=== PATIENT | female | born 1970 | race Caucasian/White ===

== ENCOUNTER 2020-09-01 15:35 | Outpatient (CLI) | payer OTHER, SELFPAY ==
--- NOTE | ~2020-09-01 | XR_ITS ---
EXAMINATION: XR knee LT 2V DATE: 09/01/2020 16:11 INDICATION: Left knee pain and swelling. TECHNIQUE: 2 views of left knee were obtained. COMPARISON: Left knee radiographs 07/14/2010 FINDINGS: Bone alignment is normal. No fracture. There is mild tricompartmental osteoarthritis. There is chondrocalcinosis of the menisci. There is a small knee joint effusion. IMPRESSION: 1. Mild left knee osteoarthritis. 2. Small left knee joint effusion. Reviewed, dictated and finalized at location A. TATION ASSOCIATE
== END 2020-09-01 15:36 | disposition home or self-care (01) ==
LOC: ANHIMG 15:41
PROVIDERS: PCP Emergency Medicine; Visit Provider Emergency Medicine
DX: M17.12 Unilateral primary osteoarthritis, left knee (principal); M25.462 Effusion, left knee
CPT/HCPCS: 73560

== ENCOUNTER 2020-11-08 16:15 | Outpatient (RCR) | payer OTHER, SELFPAY ==
--- NOTE | 2020-09-07 15:28 | PTOPEVAL ---
PHYSICAL THERAPY EVALUATION AND PLAN OF CARE Thank you for referring Pat Wood to [facility].? The patient is scheduled to be seen for therapy? 2x/week for 3 weeks. Please review, sign, date and return this plan of care KATHERINE. I agree with and certify that the following plan of care is medically necessary. Referring Physician Date Attending Provider: Kenroy Tucker MD Evaluation Outpatient Past Medical History Musculoskeletal History Hx Orthopedic Surgery Yes: left meniscectomy 2002 Endocrine History Hx Diabetes Yes Diagnosis left knee pain Onset 3 weeks Cause insidious Subjective Information new onest left knee pain Query Text:As Reported By Patient/ pointing to medial joint line Family of knee. 2002 meniscectomy of left knee. States the knee pops all the time and walking is very uncomfortable. Getting into the car and bending the knee are very painful and the knee will throb at the end of the day. She finds herself taking 1 step at a time on the stairs. Has been taking anti- inflammatories which is helping and states this is the best week of walking. Picking up Tramadol tomorrow for pain. Diagnostic Tests X-Rays For This Problem Yes: tricompartmental OA; chondrocalcinosis of menisci Self Report Pain Assessment Left Knee(s) Reported Pain Level 7 Pain Description Aching,Throbbing Pain Frequency Acute,Continuous Lowest Pain Intensity 7 Greatest Pain Intensity 10 Pain Score Pain Score 7: Self Report Interventions Used Interventions Used By Clinicians Exercise Pain Relief Interventions Used By Heat,Ice Patient Other Alleviating Interventions compression brace Lower Extremity Range of Motion Knee Range of Motion Left Knee Flexion Range of Motion - Active 113 Knee Extension Range of Motion - Active 0 Query Text: Lower Extremity Muscle Strength Testing Knee Strength Left Reason Not Measured WNL/Right Knee Flexion Strength 4 Good Knee Extension Strength 4- Good - Palpation Assessment Palpation Palpation significant tightness and trigger point noted to left quadrcieps - patient notes
--- NOTE | 2020-09-11 11:51 | PCPTNOTE ---
Patient cancelled apt this date due to illness. Patient will call and reschedule.
--- NOTE | 2020-09-19 10:06 | PCPTNOTE ---
Patient called & cancelled scheduled appointment this date. She rescheduled for 09/20/20 at 7:45.
--- NOTE | 2020-09-20 08:06 | PCPTNOTE ---
Patient called & cancelled scheduled appointment this date due to not feeling well.
--- NOTE | 2020-09-27 13:07 | PCPTNOTE ---
Patient called & cancelled scheduled appointment this date. She rescheduled for 10/04/2020.
--- NOTE | 2020-10-04 15:47 | PTOPEVAL ---
PHYSICAL THERAPY PROGRESS REPORT AND PLAN OF CARE UPDATE Thank you for referring Pat Wood to [facility].? The patient is scheduled to be seen for therapy? 1x/week for 4 weeks. Please review, sign, date and return this plan of care KATHERINE. I agree with and certify that the following plan of care is medically necessary. Referring Physician Date Attending Provider: Kenroy Tucker MD Assessment Status Progress Outpatient Past Medical History Musculoskeletal History Hx Orthopedic Surgery Yes: left meniscectomy 2002 Endocrine History Hx Diabetes Yes Diagnosis left knee pain Onset 7 weeks Cause insidious Subjective Information new onest left knee pain Query Text:As Reported By Patient/ pointing to medial joint line Family of knee. States that she feels therapy is helping. She saw an orthopedic doctor yesterday and he did a cortisone injection which seems to be productive after 24 hours. Self Report Pain Assessment Left Knee(s) Reported Pain Level 3 Pain Description Aching,Throbbing Pain Frequency Acute,Continuous Pain Score Pain Score 3: Self Report Interventions Used Interventions Used By Clinicians Exercise,Ultrasound Pain Relief Interventions Used By Heat,Ice Patient Other Alleviating Interventions . Lower Extremity Range of Motion Knee Range of Motion Left Knee Flexion Range of Motion - Active 113 Knee Extension Range of Motion - Active 0 Query Text: Lower Extremity Muscle Strength Testing Knee Strength Left Reason Not Measured WNL/Right Knee Flexion Strength 5 Normal Knee Extension Strength 5 Normal Muscle Length Testing Muscle Length Testing Two-Joint Hip Flexor Shortened Muscles Short (L) Iliopsoas,Short (L) Rectus Femoris Palpation Assessment Palpation Palpation significaintly improved patellar mobility Balance Assessment 5 Time Sit to Stand Time in Seconds 14 5 Time Sit to Stand Comments without use of UE Query Text:Normative Data: If Greater Than 15 Seconds, 74% Increase Risk for Recurrent Falls Gait Assessment 2 Minute Walk Total Distance Walked (feet) 285 2 Minute Walk Gait Speed Score (feet/ 2.37 second) PT Clinical Summary Pat is a 49 yo female participating in outpatient physical therapy for acute onset left knee pain without
--- NOTE | 2020-10-11 16:11 | PCPTNOTE ---
Patient called & cancelled scheduled appointment this date due to having to work later.
--- NOTE | 2020-10-25 14:12 | PCPTNOTE ---
Patient called & cancelled scheduled appointment this date due to weather.
--- NOTE | 2020-11-01 13:16 | PCPTNOTE ---
Patient called & cancelled scheduled appointment this date due to work.
--- NOTE | 2020-11-08 16:27 | PTOPEVAL ---
Addendum entered by Keri Jean, PT, DPT 11/08/20 16:30: correction: no frequency or duration required as patient is discharged. Original Note: PHYSICAL THERAPY DISCHARGE NOTE Thank you for referring aPt Wood to [facility].? Pat was seen in PT for acute left knee pain. Her gait pattern and strength have significantly improved and she is independent with HEP. Symptoms continue to persist possibly requiring further imaging assessment for differential diagnosis. Please review, sign, date and return this plan of care KATHERINE. I agree with and certify that the following plan of care is medically necessary. Referring Physician Date Attending Provider: Kenroy Tucker MD Discharge Outpatient Past Medical History Musculoskeletal History Hx Orthopedic Surgery Yes: left meniscectomy 2003 Endocrine History Hx Diabetes Yes Diagnosis left knee pain Onset 11 weeks Cause insidious Subjective Information new onest left knee pain Query Text:As Reported By Patient/ pointing to medial joint line Family of knee. Had a cortisone injection a month ago that was initially helping with a lot of the pain , but she states that some of the pain has returned, especially when walking and taking sharp turns. Self Report Pain Assessment Left Knee(s) Reported Pain Level 4 Pain Description Aching,Throbbing Pain Frequency Acute,Continuous Lowest Pain Intensity 2 Greatest Pain Intensity 6 Other Pain Aggravating Factors walking and taking sharp turns Pain Score Pain Score 4: Self Report Interventions Used Interventions Used By Clinicians Exercise Pain Relief Interventions Used By Lisa Dodd Patient Lower Extremity Muscle Strength Testing Knee Strength Left Reason Not Measured WNL/Right Knee Flexion Strength 5 Normal Knee Extension Strength 5 Normal Balance Assessment 5 Time Sit to Stand Time in Seconds 14 5 Time Sit to Stand Comments without use of UE Query Text:Normative Data: If Greater Than 15 Seconds, 74% Increase Risk for Recurrent Falls Gait Assessment Gait Pattern Assessment Gait Pattern No Deviations/Normal 2 Minute Walk Total Distance Walked (feet) 429 2 Minute Walk Gait Speed Score (feet/ 3.57 second) PT Clinical Summary Pat is a 49 yo female participating in outpatient physical therapy for acute onset left knee pain without
== END 2020-11-09 07:35 | disposition home or self-care (01) ==
LOC: ANHPT 16:15
PROVIDERS: PCP Emergency Medicine; Visit Provider Emergency Medicine
DX: M25.562 Pain in left knee (principal)
CPT/HCPCS: 97035; 97110; 97140; 97162

== ENCOUNTER 2021-09-10 16:33 | Outpatient (CLI) | payer OTHER, SELFPAY ==
--- NOTE | ~2021-09-10 | XR_ITS ---
EXAMINATION: XR foot RT 2V DATE: 09/10/2021 16:52 INDICATION: Right foot pain. TECHNIQUE: 2 views of right foot were obtained. COMPARISON: None. FINDINGS: Bone alignment is normal. No acute fracture. There is an old healed fracture of proximal di aphysis of fifth metatarsal. There is heterotopic ossification adjacent to base of fifth metatarsal. There is mild osteoarthritis of some of the midfoot joints and interphalangeal joints. There are enth esophytes at the posterior and plantar aspects of calcaneal tuberosity. IMPRESSION: 1. Mild polyarticular osteoarthritis. Reviewed, dictated and finalized at location A. SHAPER
== END 2021-09-10 16:34 | disposition home or self-care (01) ==
LOC: ANHIMG 16:37
PROVIDERS: PCP Emergency Medicine; Visit Provider Emergency Medicine
DX: M19.071 Primary osteoarthritis, right ankle and foot (principal)
CPT/HCPCS: 73620

== ENCOUNTER 2021-10-16 15:54 | Outpatient (CLI) | payer OTHER, SELFPAY ==
--- NOTE | ~2021-10-16 | MM_ITS ---
EXAMINATION: MM screening derik BI w richar HISTORY: Screening TECHNIQUE: Craniocaudal and mediolateral oblique 3-D tomosynthesis images were obtained and synthetic 2-D images were generated. CAD analysis was submitted and interpreted. COMPARISON: Comparison to multiple prior studies sequentially, with oldest reviewed study dated 06/09. BREAST PARENCHYMAL COMPOSITION: There are scattered areas of fibroglandular density. FINDINGS: There is no evidence of suspicious mass, calcification, or architectural distortion to sugg est malignancy in either breast. There has been no suspicious interval change. IMPRESSION: 1. No mammographic evidence of malignancy. 2. Recommend routine screening mammography in one year. BI-RADS Category 1: Negative Reviewed, dictated and finalized at location A. T RELATION OFFICER
== END 2021-10-16 15:55 | disposition home or self-care (01) ==
LOC: ANHIMG 15:55
PROVIDERS: PCP Emergency Medicine; Visit Provider Emergency Medicine
DX: Z12.31 Encounter for screening mammogram for malignant neoplasm of breast (principal)
CPT/HCPCS: 77063; 77067

== ENCOUNTER 2022-06-28 12:08 | Observation (INO) | payer OTHER, SELFPAY ==
--- NOTE | ~2022-06-28 | CT_ITS ---
EXAMINATION: CT abdomen pelvis w con INDICATION: Lower abdominal and pelvic pain, open wound TECHNIQUE: Computed tomographic images of the abdomen and pelvis were obtained after the administrati on of 100 cc of Omnipaque 350 intravenous contrast. The dose-length product (DLP) was 1664.43 mGy-cm. Automated exposure control and iterative reconstruction technique were employed. COMPARISON: 09/20/2019 FINDINGS: Minimal dependent atelectasis is present in the lung bases. The heart size is normal. The l iver, spleen, pancreas, gallbladder, and adrenal glands are normal. The kidneys are unremarkable. No pathologically enlarged abdominal or pelvic lymph nodes are identified. There is no free intraperiton eal gas or evidence of bowel obstruction. Colonic diverticulosis is present without evidence of diver ticulitis. The appendix is normal. There is severe lumbar spondylosis at L5-S1. There is an approximately 6.6 x 4.2 cm soft tissue abscess in the anterior/mid nine lower pelvis with a tract to the skin surface. Fat stranding surrounding the abscess. IMPRESSION: 1. Approximately 6.6 x 4.2 cm soft tissue abscess in the anterior/midline lower pelvis with tract to the skin surface. Reviewed, dictated and finalized at location A.
[2022-06-28 12:12] VITALS: BP 151/73; PULSE 91; RESP 18; TEMP 36.6; O2SAT 99
--- NOTE | 2022-06-28 13:12 | ED.SKABFB ---
HPI - Skin/Abscess/Foreign Bdy General Chief complaint: Skin/Abscess/Foreign Body Stated complaint: abcess to hernia scar Time Seen by Provider: 06/28/22 12:47 Source: patient Mode of arrival: ambulatory Limitations: no limitations History of Present Illness HPI narrative: This is a 51-year-old female that presents to the emergency department for a wound on her abdomen. Ongoing over the last week. Reports she has started to notice some abnormal drainage from the area. Denies fevers or vomiting. Related Data Allergies Allergy/AdvReac Type Severity Reaction Status Date / Time No Known Allergies Allergy Verified 03/05/17 18:39 Review of Systems Review of Systems: CONSTITUTIONAL: Denies fever GASTROINTESTINAL: Denies abdominal pain, nausea, vomiting GENITOURINARY: Denies dysuria All systems reviewed & are unremarkable except as noted in HPI and below PMFSH Past Medical History Medical History (Updated 06/28/22 @ 14:41 by Bobbi Rohca PA-C) History of diabetes mellitus History of hypertension Family History Family History (Updated 02/05/17 @ 14:07 by DOCTOR UNKNOWN) Father Family history of diabetes mellitus in first degree relative Family history of congestive heart failure Mother Family history of heart disease in male family member before age 55 Acute myocardial infarction Other Diabetes mellitus Hypertension Social History Social History Smoking status: Current every day smoker Alcohol intake: current Exam Narrative: GENERAL: Well-appearing, well-nourished, and in no acute distress. HEAD: Normocephalic, atraumatic. EYES: EOMI. CHEST: Clear to auscultation. No respiratory distress. No wheezes rales or rhonchi HEART: Regular rate and rhythm. No murmur heard. Normal peripheral pulses. ABDOMEN: Soft, nontender, nondistended, normal active bowel sounds. 2cm open wound to the mid abdomen that is 1cm deep. No surrounding erythema or warmth of the area. There is clear/yellow drainage from the wound EXTREMITIES: Normal range of motion. No edema. SKIN: Warm, dry, no rash. NEURO: No focal deficits. Alert and oriented x3. PSYCH: Normal mood and affect Course Consultations Consultation #1: Spoke with surgery about patient and work-up. Patient will be started on Zosyn and they will consult for further management of abscess. Date: 06/28/22 Consultation #2: Spoke with hospitalist about patient and work-up who accepts admission Date: 06/28/22 Vital Signs Vital signs: Vital Signs Temperature 97.9 F 06/28/22 12:12 Pulse Rate 91 06/28/22 12:12 Respiratory Rate 18 06/28/22 12:12 Blood Pressure 151/73 H 06/28/22 12:12 Pulse Oximetry 99 06/28/22 12:12 Temperature 97.9 F 06/28/22 12:12 Pulse Rate 91 06/28/22 12:12 Respiratory Rate 18 06/28/22 12:12 Blood Pressure 151/73 H 06/28/22 12:12 Pulse Oximetry 99 06/28/22 12:12 MDM - Skin/Abscess/Foreign Bdy MDM Narrative Medical decision making narrative: Patient presents to the emergency department for a wound noted to the mid abdomen around where her previous hernia repair was. She is afebrile and nontoxic-appearing. Her vitals are stable. CBC with leukocytosis to 14.1. CT scan of the abdomen and pelvis shows a 6.6 x 4.2 cm soft tissue abscess in the anterior/midline lower pelvis with tract to the skin surface. I was able to obtain a culture from the area. Spoke with surgery about patient and work-up. Patient will be started on Zosyn and they will consult for further management of abscess. Spoke with hospitalist about patient and work-up who accepts admission Lab Data Attestation: I reviewed the patient's lab results. Result diagrams: 06/28/22 13:06 06/28/22 13:06 Labs: Lab Results 06/28/22 06/28/22 06/28/22 Range/Units 13:06 13:06 13:06 WBC 14.1 H (4.5-10.0) K/mm3 RBC 4.96 (4.2-5.4) M/mm3 Hgb 14.8 (12.0-15.0) g/dL Hct 43.9 (37.0-47.0) % MCV
[2022-06-28 13:18] LABS: Appearance Urine Slightly Cloudy (Clear); Bilirubin Urine Negative (Negative); Blood Urine Negative (Negative); Color Urine Yellow (Yellow); Glucose Urine UA Negative (Negative); Ketones Urine Negative (Negative); Leukocyte Esterase Ur Negative LEU/UL (Negative); Nitrate Urine Negative (Negative); Protein Urine Negative (Negative); Specific Grav Ur >= 1.030 (1.001-1.035); Urobilinogen Urine 0.2 mg/dL (<2.0); pH Urine 5.5 (5.0-9.0)
[2022-06-28 13:19] LABS: Basophils Absolute Auto 0.1 K/mm3 (0.0-0.1); Basophils Percent Auto 0.9 % (0.2-1.2); Eosinophils Absolute Auto 0.5 K/mm3 (0-0.3); Eosinophils Percent Auto 3.6 % (0-4.4); Hematocrit 43.9 % (37.0-47.0); Hemoglobin 14.8 g/dL (12.0-15.0); Immature Granulocyte Absolute 0.09 K/mm3 (0.00-0.031); Immature Granulocyte Percent A 0.6 % (0-0.5); Lymphocytes Absolute Auto 2.53 K/mm3 (0.9-3.2); Mean Corpuscular HGB Conc 33.7 g/dl (32-36); Mean Corpuscular Hemoglobin 29.8 pg (26-34); Mean Corpuscular Volume 88.5 fl (80-100); Mean Platelet Volume 9.3 fl (7.4-10.4); Monocytes Absolute Auto 0.8 K/mm3 (0.1-0.6); Monocytes Percent Auto 5.3 % (2.6-8.5); Neutrophils Absolute Auto 10.1 K/mm3 (1.3-6.7); Neutrophils Percent Auto 71.6 % (45.5-73.1); Platelet Count Result 449 k/mm3 (150-375); Red Blood Count 4.96 M/mm3 (4.2-5.4); Red Cell Distribution Width 14.5 % (11.5-14.5); White Blood Count 14.1 K/mm3 (4.5-10.0)
[2022-06-28 13:21] LABS: Bacteria Urine Trace /hpf; Mucus Urine Few /lpf; RBC Urine 0-2 /hpf (0-2); Squamous Epithelial Cell Urine Many /hpf (Few)
[2022-06-28 13:26] LABS: Add Urine Microscopic? YES
[2022-06-28 13:30] LABS: Alanine Aminotransferase 28 U/L (6-35); Albumin Level 4.8 g/dL (3.5-5.1); Alkaline Phosphatase 70 U/L (38-126); Anion Gap 15 mmol/L (8-16); Aspartate Amino Transferase 27 U/L (14-36); Bilirubin,Total 0.3 mg/dL (0.2-1.3); Blood Urea Nitrogen 13 mg/dL (7-17); Calcium 9.2 mg/dL (8.4-10.2); Carbon Dioxide 23 mmol/L (22-30); Chloride 101 mmol/L (98-107); Estimated CRCL calculation 104 ml/min; Estimated Glomerular Filt Rate > 60; Glucose 109 mg/dL (65-110); Lipase 118 U/L (23-300); Sodium 139 mmol/L (137-145)
[2022-06-28 15:18] VITALS: BP 145/78; PULSE 81; RESP 18; TEMP 37.1; O2SAT 97
--- NOTE | 2022-06-28 15:55 | ADMGEN ---
This patient, Pat Wood, was admitted to 2 Medical Room 251-. Patient/family oriented to hospital policies and general routines including ID bracelet, bed and alarms, visiting hours, pain management, procedures, bathroom and other care routines, personal items, smoking policy, room service/diet, and visiting hours. Information on how to activate the Rapid Response Team has been discussed. Patient/Family are encouraged to report perceived risks to care and to ask questions if they do not understand what they are told or what they should do.
[2022-06-28 16:20] VITALS: BP 146/73; PULSE 76; RESP 18; TEMP 37.2; O2SAT 95
[2022-06-28 16:25] VITALS: BMI 46.7
--- NOTE | 2022-06-28 17:49 | PM.IMHP ---
H&P: HPI History of Present Illness Date/Time: 06/28/22 17:49 Chief Complaint: Skin abscess Narrative: This is a 51-year-old female patient who has had a history of a hernia repair and has had at least 2 or 3 abscesses drained from her abdomen. Patient had an abscess drained back in May at [facility]. The patient had approximately 10 days of antibiotics and felt that she was doing well. Over the last several days she has noticed a greenish foul-smelling drainage from her umbilical area where she had a history of umbilical hernia repair. This has been occurring for the last week. The patient stated that she had a from that was a nurse to encouraged her to come to the hospital. She denies any fever or chills or any nausea vomiting. A culture was obtained from the wound in the emergency room. Surgery has been consulted. White count was found to be 14.1. Urine had many squamous epithelial cells which leads me to believe that this is a contaminant. Abdominal pelvis CT was read as approximately 6.6 x 4.2 cm soft tissue abscess in the anterior/midline lower pelvis with tract to the skin surface. The patient was started on Zosyn. The patient is being admitted to observation status on the date of service of 06/28/2022. Review of Systems Review of Systems: See HPI All systems reviewed & are unremarkable except as noted in HPI and below Constitutional: Constitutional: Reports as per HPI and Reports no additional constitutional complaints Eyes: Eyes: Reports as per HPI and Reports no additional eye complaints ENT: Reports system reviewed and no additional complaints, except as documented and Reports Normal hearing present Cardiovascular: Cardiovascular: Reports no additional cardiovascular complaints Respiratory: Respiratory: Reports no additional respiratory complaints and Reports no additional respiratory complaints Gastrointestinal: Gastrointestinal: Reports as per HPI and Reports no additional gastrointestinal complaints Musculoskeletal: Musculoskeletal: Reports no additional musculoskeletal complaints Integumentary/Breasts: Skin/Breast: Reports system reviewed and no additional complaints, except as docu and Reports as per HPI Neurologic: Reports system reviewed and no additional complaints, except as documented, Reports as per HPI and Reports Normal hearing present Psychiatric: Psychiatric: Reports no additional psychiatric complaints and Reports as per HPI Endocrine: Endocrine: Reports no additional endocrine complaints Hematologic/Lymphatic: Hematologic/Lymphatic: Reports no additional hematologic/lymphatic complaints Allergic/Immunologic: Allergic/Immunologic: Reports no additional allergic/immunologic complaints [facility] Past Medical History Medical History Depression with anxiety DM2 (diabetes mellitus, type 2) Glaucoma History of diabetes mellitus History of hypertension Hyperlipidemia Hypertension Tobacco abuse Surgical History Surgical History (Updated 06/28/22 @ 18:01 by Renee Love NP) H/O hernia repair X3 H/O left knee surgery H/O removal of cyst History of section, low transverse X2 Family History Family History Father Family history of diabetes mellitus in first degree relative Family history of congestive heart failure Mother Family history of heart disease in male family member before age 55 Acute myocardial infarction Other Diabetes mellitus Hypertension Social History Social History (Updated 06/28/22 @ 18:00 by Renee Love NP) Social History: The patient stated that she is down to about 3 cigarettes a day. She is . She works as a assistant corporate secretary. She has 2 children. She occasionally drinks alcohol. No marijuana or illicit drugs. She does not have a durable power criminal defense attorney for healthcare. Code status full code Years smok
[2022-06-28 20:12] VITALS: BP 154/64; PULSE 75; RESP 20; TEMP 36.6; O2SAT 98
[2022-06-28 20:47] LABS: Glucose Point of Care 211 mg/dl (65-105)
[2022-06-28] MEDS: LATANOPROST 0.005% OP SOLN 2.5 ML BTL 1 DROP EACH EYE (20:52)
[2022-06-28] MEDS: VENLAFAXINE HCL 37.5 MG TABLET PO (23:46)
[2022-06-29 05:19] LABS: Basophils Absolute Auto 0.1 K/mm3 (0.0-0.1); Basophils Percent Auto 0.9 % (0.2-1.2); Eosinophils Absolute Auto 0.4 K/mm3 (0-0.3); Eosinophils Percent Auto 4.5 % (0-4.4); Hematocrit 39.4 % (37.0-47.0); Hemoglobin 12.8 g/dL (12.0-15.0); Immature Granulocyte Absolute 0.06 K/mm3 (0.00-0.031); Immature Granulocyte Percent A 0.7 % (0-0.5); Lymphocytes Absolute Auto 1.69 K/mm3 (0.9-3.2); Lymphocytes Percent Auto 19.2 % (18.3-44.2); Mean Corpuscular HGB Conc 32.5 g/dl (32-36); Mean Corpuscular Hemoglobin 28.4 pg (26-34); Mean Corpuscular Volume 87.4 fl (80-100); Mean Platelet Volume 9.4 fl (7.4-10.4); Monocytes Absolute Auto 0.6 K/mm3 (0.1-0.6); Monocytes Percent Auto 6.5 % (2.6-8.5); Neutrophils Percent Auto 68.2 % (45.5-73.1); Platelet Count Result 358 k/mm3 (150-375); Red Blood Count 4.51 M/mm3 (4.2-5.4); Red Cell Distribution Width 14.2 % (11.5-14.5); White Blood Count 8.8 K/mm3 (4.5-10.0)
[2022-06-29 05:24] VITALS: BP 134/73; PULSE 65; RESP 16; TEMP 36.5; O2SAT 98
[2022-06-29 05:46] LABS: Alanine Aminotransferase 24 U/L (6-35); Albumin Level 3.9 g/dL (3.5-5.1); Alkaline Phosphatase 64 U/L (38-126); Anion Gap 8 mmol/L (8-16); Aspartate Amino Transferase 22 U/L (14-36); Bilirubin,Total 0.4 mg/dL (0.2-1.3); Blood Urea Nitrogen 14 mg/dL (7-17); Calcium 8.4 mg/dL (8.4-10.2); Carbon Dioxide 27 mmol/L (22-30); Chloride 102 mmol/L (98-107); Estimated CRCL calculation 95 ml/min; Estimated Glomerular Filt Rate 59; Glucose 169 mg/dL (65-110); Lactate Dehydrogenase 116 U/L (120-246); Potassium 4.2 mmol/L (3.4-5.0); Sodium 137 mmol/L (137-145)
[2022-06-29 07:14] LABS: Hemoglobin A1C 7.6 % (<5.7)
--- NOTE | 2022-06-29 08:08 | PM.CNGS ---
Assessment and Plan Assessment and plan (1) Abdominal wall abscess: Code(s): L02.211 - Cutaneous abscess of abdominal wall Status: Acute Assessment and Plan: reviewed c radiologist and abscess does not seem to involve underlying mesh, will open it up and drain at bedside, cont abx and local wound care, f/u 10 days after discharge (2) DM2 (diabetes mellitus, type 2): Code(s): E11.9 - Type 2 diabetes mellitus without complications Status: Acute Assessment and Plan: will need good bs control to allow healing of wound History of Present Illness Consult details Consult date: 06/29/22 Reason for consult: wound care Requesting physician: Garcia Moreland MD Narrative: The patient is a 51-year-old female with multiple medical issues, including multiple ventral hernia repairs, presenting with a draining wound in her lower midline. The patient reports her last hernia repair was approximally 2016. The patient reports she has had a couple of abscesses in her abdominal wall that have required drainage in the past. The patient reports over the last week that she had an opening in her lower midline that has been draining purulent fluid. The patient reports there is some mild associated pain. The patient denies any cellulitis, fevers or chills. Review of Systems Constitutional: Constitutional: Reports as per HPI, Denies anorexia, Denies chills, Denies fatigue, Denies fever(s), Denies lethargy, Denies poor appetite, Denies weakness, Denies weight gain and Denies weight loss Eyes: Eyes: Reports no additional eye complaints ENT: Reports system reviewed and no additional complaints, except as documented Cardiovascular: Cardiovascular: Reports no additional cardiovascular complaints Respiratory: Respiratory: Reports no additional respiratory complaints Gastrointestinal: Gastrointestinal: Reports as per HPI, Denies abdominal pain, Denies belching, Denies bloating, Denies change in bowel habits, Denies constipation, Denies GI cramping, Denies heartburn, Denies diarrhea, Denies loose stools, Denies nausea and Denies vomiting Genitourinary: Genitourinary: Reports no additional female genitourinary complaints Musculoskeletal: Musculoskeletal: Reports no additional musculoskeletal complaints Integumentary/Breasts: Skin/Breast: Reports as per HPI Neurologic: Reports system reviewed and no additional complaints, except as documented Psychiatric: Psychiatric: Reports no additional psychiatric complaints Endocrine: Endocrine: Reports no additional endocrine complaints Hematologic/Lymphatic: Hematologic/Lymphatic: Reports no additional hematologic/lymphatic complaints Allergic/Immunologic: Allergic/Immunologic: Reports no additional allergic/immunologic complaints [facility] Past Medical History Medical History Depression with anxiety DM2 (diabetes mellitus, type 2) Glaucoma History of diabetes mellitus History of hypertension Hyperlipidemia Hypertension Tobacco abuse Surgical History Surgical History H/O hernia repair X3 H/O left knee surgery H/O removal of cyst History of section, low transverse X2 Family History Family History Father Family history of diabetes mellitus in first degree relative Family history of congestive heart failure Mother Family history of heart disease in male family member before age 55 Acute myocardial infarction Other Diabetes mellitus Hypertension Social History Social History Social History: The patient stated that she is down to about 3 cigarettes a day. She is . She works as a police department secretary. She has 2 children. She occasionally drinks alcohol. No marijuana or illicit drugs. She does not have a durable power paperhanger pipe for healthcare.
--- NOTE | 2022-06-29 08:15 | W.PM.PROC2 ---
Procedure Note - Detailed Date of Procedure 06/29/22 Pre-op Diagnosis Lower midline abdominal wall abscess measuring approximately 7 x 5 x 8 cm Post-op Diagnosis Same Procedure Performed complex incision and drainage abdominal wall abscess Surgeon Suma Siu MD Anesthesia None Indications 51-year-old female with lower midline abdominal wall abscess, multiple previous surgical history includeing ventral hernia repair Findings 7 x 5 x 8 cm abscess cavity in subcutaneous tissue of lower midline Description of Procedure The patient was placed in the supine position. The patient of note has severe neuropathy and does not feel much in her lower abdomen. The area was then prepped and draped in the normal sterile fashion. Began by bluntly opening up the existing opening using a hemostat. The area was opened approximately 2 x 2 cm. I then bluntly dissected down to the abscess cavity which was noted to be approximately 8 cm into the subcutaneous tissue. Once into the cavity, a large amount blood purulent drainage was noted. I then used the hemostat to bluntly dissect around this cavity which measured approximately 7 x 5 cm. Once the area was completely opened and drained, packed this area with quarter-inch iodoform to keep the tract open and draining. Then placed a sterile dressing on the abdominal wall. The patient tolerated the procedure well. Estimated Blood Loss 0 Drains No Packing Yes Pathology None sent Complications No immediate complications Condition Stable Disposition Floor [facility] Billing Surgery - Charge Forward: Surgery Billing
[2022-06-29 08:30] LABS: Glucose Point of Care 165 mg/dl (65-105)
[2022-06-29 09:13] VITALS: BP 136/72
[2022-06-29] MEDS: FENOFIBRATE 160 MG TABLET PO (09:14)
[2022-06-29] MEDS: ROSUVASTATIN 10 MG TABLET PO (09:14)
[2022-06-29] MEDS: lisinopriL 20 MG TABLET PO (09:14)
[2022-06-29] MEDS: VENLAFAXINE HCL 37.5 MG TABLET PO (09:14)
[2022-06-29] MEDS: BRIMONIDINE TARTRATE 0.2% OP SOLN 5 ML BTL 1 DROP EACH EYE (09:14)
[2022-06-29] MEDS: GLIMEPIRIDE 1 MG TABLET PO (09:14)
--- NOTE | 2022-06-29 10:09 | PC.NURSE ---
Spoke with Tori Fulton per Dr. Siu to let her know that from his stand point patient can discharge. He has already explained wound care to the patient, the patient already has a follow up appointment with Dr. Anderson, and that patient will need antibiotics at discharge. Tori stated she will come see patient.
--- NOTE | 2022-06-29 11:09 | PM.DS ---
DS: Admitting Diagnosis Discharge Date 06/29/22 13:13 Admitting Diagnosis skin abscess Type 2 diabetes uncontrolled DS: Discharge Diagnosis Discharge Diagnosis (1) Abdominal wall abscess: Code(s): L02.211 - Cutaneous abscess of abdominal wall Status: Acute Assessment and Plan: -patient has mild leukocytosis with a white count of 14.1. -patient was started on Zosyn. -surgery has been consulted. -continue to monitor CBC. -wound and blood cultures are pending. -patient is afebrile. (2) DM2 (diabetes mellitus, type 2): Code(s): E11.9 - Type 2 diabetes mellitus without complications Status: Acute Assessment and Plan: -Accu-Cheks AC and HS. -check A1c. -Hold metformin -continue with glimepiride. (3) Hyperlipidemia: Code(s): E78.5 - Hyperlipidemia, unspecified Status: Acute Assessment and Plan: -continue with fenofibrate. -continue Crestor (4) Glaucoma: Code(s): H40.9 - Unspecified glaucoma Status: Acute Assessment and Plan: -continue with latanoprost (5) Hypertension: Code(s): I10 - Essential (primary) hypertension Status: Acute Assessment and Plan: -continue lisinopril and monitor BMP (6) Depression with anxiety: Code(s): F41.8 - Other specified anxiety disorders Status: Acute Assessment and Plan: -Continue with venlafaxine -continue with diazepam (7) Tobacco abuse: Code(s): Z72.0 - Tobacco use Status: Acute Assessment and Plan: -patient has been encouraged to stop smoking. The patient states that she smokes 3 cigarettes a day. One on the way to work when on the way home from work and 1 at bedtime. DS: Summary Hospital Course Reason for hospitalization: skin abscess Hospital Course: 51-year-old female patient who has had a history of a hernia repair and has had at least 2 or 3 abscesses drained from her abdomen.? Patient had an abscess drained back in May at [facility].? The patient had approximately 10 days of antibiotics and felt that she was doing well.? Over the last several days she has noticed a greenish foul-smelling drainage from her umbilical area where she had a history of umbilical hernia repair.? This has been occurring for the last week.? The patient stated that she had a from that was a nurse to encouraged her to come to the hospital.? She denies any fever or chills or any nausea vomiting.? A culture was obtained from the wound in the emergency room.? Surgery has been consulted.? White count was found to be 14.1.? Urine had many squamous epithelial cells which leads me to believe that this is a contaminant.? Abdominal pelvis CT was read as approximately 6.6 x 4.2 cm soft tissue abscess in the anterior/midline lower pelvis with tract to the skin surface.? The patient was started on Zosyn.? The patient is being admitted to observation status on the date of service of 06/28/2022. Status at Discharge Cognitive/behavioral status at discharge: Alert and oriented x4, pleasant, no behavioral concerns Functional status at discharge: independent ambulation Overall status at discharge: patient is back to baseline Time Spent with Patient Time attestation: Total time spent providing and/or coordinating discharge services: Time spent: Greater than 30 minutes (>50% time education) Exam Narrative: General:??no acute distress. Non-toxic appearing.?Lying in bed. T 97.7F, HR 65, RR 16, BP 136/7, SpO2 98% RA HEENT:??? Normocephalic. pupils equal and round. Sclera anicteric. Mucous membranes pink and moist. Neck:???no JVD Respiratory:? Lungs sounds clear to auscultation bilaterally. respirations even and labored. Cardiovascular:??Regular rate and rhythm with S1-S2.?? no murmurs, gallops, or rubs Gastrointestinal:??Abdomen is soft, obese, nontender, and nondistended with positive bowel sounds. no guarding or suprapubic tenderness, lower abdomen dressing with
[2022-06-29 12:13] LABS: Glucose Point of Care 143 mg/dl (65-105)
--- NOTE | 2022-06-29 13:04 | PC.NURSE ---
Faxed release of records to [facility] per Tori Fulton.
--- NOTE | 2022-06-29 13:07 | PC.NURSE ---
Spoke with Tori Fulton to clarify that patient can leave before MRSA swab results come back as well as before culture results come back from [facility]. Tori stated that she will follow up with patient outpatient and patient okay to discharge
== END 2022-06-29 14:34 | disposition home or self-care (01) ==
LOC: ANHED 14:41 → ANH2MED 16:01
PROVIDERS: Nurse Practitioner; Physician Assistant; Admitting Provider Family Medicine; Emergency Provider Emergency Medicine; PCP Emergency Medicine; Visit Provider Nurse Practitioner Family
DX: L02.211 Cutaneous abscess of abdominal wall (principal); E11.9 Type 2 diabetes mellitus without complications; I10 Essential (primary) hypertension; E78.5 Hyperlipidemia, unspecified; F17.210 Nicotine dependence, cigarettes, uncomplicated; F41.8 Other specified anxiety disorders
CPT/HCPCS: 10061; 36415; 74177; 80053; 81001; 81025; 82728; 82948; 83036; 83615; 83690; 83735; 85025; 86140; 87040; 87070; 87081; 87147; 87181; 87186; 87205; 96365; 99285; A9270; G0378; G0379; J2543; Q9967

== ENCOUNTER 2022-08-29 14:59 | Outpatient (CLI) | payer OTHER, SELFPAY ==
--- NOTE | ~2022-08-29 | CT_ITS ---
EXAMINATION: CT abdomen pelvis w con DATE: 08/29/2022 15:33 INDICATION: Pelvic abscess follow-up TECHNIQUE: Computed tomography (CT) of the abdomen and pelvis was performed with 100 CC Omnipaque 350 intravenous contrast. Automated exposure control and iterative reconstruction technique were employe d. Exam dose: 1691.62 mGy-cm total exam DLP. COMPARISON: 06/28/2022 CT abdomen pelvis FINDINGS: No infiltrate or consolidation at the lung bases. Normal heart size. No pericardial or pleu ral effusion. There is diffuse hepatic steatosis. No hepatic, splenic, pancreatic, and adrenal space-occupying mass lesion. No bile duct or pancreatic duct dilatation. Approximately 9 mm probable upper pole left renal cyst. No urinary tract obstruction or hydroureteron ephrosis. There is atherosclerotic calcification but normal caliber of the abdominal aorta. 2.9 cm right ovarian cyst. Asymmetric prominence of the left adnexal vessels. The uterus and adnexal areas are otherwise unremarkable. Normal appendix. Diverticulosis of the colon, with posterior prominent involvement of the sigmoid reg ion; no CT evidence of diverticulitis or bowel obstruction or intraperitoneal free air. Fat-containing umbilical hernia. Approximately 1.4 x 3.5 cm abscess cavity is noted in the lower anterior pelvic wall with prominent s urrounding soft tissue thickening consistent with inflammatory change and/or fibrosis. There is subja cent tenting of the anterosuperior urinary bladder wall as well as some apparent matted nondilated sm all bowel segments subjacent to the anterior pelvic wall abscess and soft tissue thickening.. Moderately severe degenerative disc disease at L4-5 and severe degenerative disc disease at L5-S1. De generative spurring of the lower thoracic spine. Bilateral hip osteoarthritis. No suspicious osteolytic or osteoblastic lesions are noted. IMPRESSION: Resolving 1.4 x 3 x 5 cm abscess cavity in the lower mid anterior pelvic wall with surro unding soft tissue prominence stranding consistent with inflammatory change/phlegmon and/or fibrosis, subjacent matted nondilated small bowel loops and tenting of the anterosuperior aspect of the urinar y bladder Reviewed, dictated and finalized at [facility]. Reviewed, dictated and finalized at location B. UCT MANAGER [employer] IMPRESSION: Resolving 1.4 x 3 x 5 cm abscess cavity in the lower mid anterior pelvic wall with surrounding soft tissue prominence stranding consistent with i nflammatory change/phlegmon and/or fibrosis, subjacent matted nondilated small bowel loops and tenting of the anterosuperior aspect of the urinary bladder
[2022-08-29 15:26] LABS: Estimated Glomerular Filt Rate 53
== END 2022-08-29 15:00 | disposition home or self-care (01) ==
LOC: ANHIMG 15:02
PROVIDERS: PCP Emergency Medicine; Visit Provider Surgery
DX: L02.211 Cutaneous abscess of abdominal wall (principal)
CPT/HCPCS: 74177; Q9967

== ENCOUNTER 2022-10-15 15:25 | Outpatient (CLI) | payer OTHER, SELFPAY ==
--- NOTE | ~2022-10-15 | CT_ITS ---
EXAMINATION: CT pelvis w con DATE: 10/15/2022 15:50 INDICATION: Abdominal wall abscess. TECHNIQUE: Computed tomography (CT) of the pelvis was performed with 100 mL Omnipaque 350 intravenous contrast. Automated exposure control and iterative reconstruction technique were employed. The dose- length product was 1220.35 mGy-cm. COMPARISON: CT abdomen and pelvis 08/29/2022 FINDINGS: There is diverticulosis of the colon without evidence of diverticulitis. There are no patho logically enlarged lymph nodes. There is no free intraperitoneal fluid. There is scarring in anterior abdominal wall. There is a 3.3 x 1.1 x 1.8 cm abscess in anterior abdominal wall at the midline, imp roved from 3.4 x 1.7 x 2.7 cm on 08/29/22. There is severe lower lumbar spondylosis. IMPRESSION: 1. 3.3 x 1.1 x 1.8 cm abscess in anterior abdominal wall, improved from 08/29/2022. Reviewed, dictated and finalized at location A. OMER ORDER CLERK IMPRESSION: 1. 3.3 x 1.1 x 1.8 cm abscess in anterior abdominal wall, improved from 08/29/20 22.
[2022-10-15 15:43] LABS: Estimated Glomerular Filt Rate 44
== END 2022-10-15 15:26 | disposition home or self-care (01) ==
LOC: ANHIMG 15:29
PROVIDERS: PCP Emergency Medicine; Visit Provider Surgery
DX: L02.211 Cutaneous abscess of abdominal wall (principal)
CPT/HCPCS: 72193; Q9967

== ENCOUNTER 2023-01-22 15:24 | Outpatient (CLI) | payer OTHER, SELFPAY ==
--- NOTE | ~2023-01-22 | CT_ITS ---
CT of the Pelvis: Indication: Abdominal wall abscess Technique: 2.5 mm axial scans were obtained through the pelvis following intravenous administration of 100 cc of Omnipaque 350. Dose reduction technique was used on this scan by utilizing automated exp osure control and iterative reconstruction technique. The dose-length product (DLP) was 1107.40 mGy-c m. COMPARISON: 10/15/2022 Findings: Visualized lower kidneys are unremarkable. There are atherosclerotic changes of the aorta a nd iliac vessels. No evidence for bowel obstruction. Small fat-containing umbilical hernia noted. Irregular inflammator y change and probable small fluid collection at the level anterior abdominal midline is present. Flui d collections probably minimally decreased as compared to prior exam. Urinary bladder unremarkable. Left ovarian cyst measures up to 4.5 cm in diameter. Right ovarian cyst measures up to 2.8 cm in diameter. No ascites. Impression: Probable mild interval improvement in inflammatory change and abscess at the low anterior midline abd ominal wall. Bilateral ovarian cysts, left greater than right, as detailed above. Reviewed, dictated and finalized at location M. Impression: Probable mild interval improvement in inflammatory change and abscess at the lo w anterior midline abdominal wall. Bilateral ovarian cysts, left greater than right, as detailed above.
[2023-01-22 15:46] LABS: Estimated Glomerular Filt Rate > 60
== END 2023-01-22 15:25 | disposition home or self-care (01) ==
PROVIDERS: PCP Emergency Medicine; Visit Provider Surgery
DX: L02.211 Cutaneous abscess of abdominal wall (principal); N83.202 Unspecified ovarian cyst, left side; N83.201 Unspecified ovarian cyst, right side
CPT/HCPCS: 72193; Q9967

== ENCOUNTER 2023-11-05 13:02 | Outpatient (CLI) | payer OTHER, SELFPAY ==
--- NOTE | 2023-11-05 14:00 | NEURO_ITS ---
Impression: # Known diabetic complains of numbness of hands. # Evolving mild bilateral Carpal Tunnel Syndrome. # Left ulnar neuropathy across the elbow. # Normal needle/EMG exam. Nerve Conduction Studies Anti Sensory Summary Table Stim Site NR Peak (ms) P-T Amp (?V) Site1 Site2 Delta-P (ms) Dist (cm) Alejandro (m/s) Left Median Anti Sensory (2-3nd Digit) Wrist 3.1 66.7 Wrist 2-3nd Digit 3.1 14.0 45 Wrist 3.1 62.3 Wrist 2-3nd Digit 3.1 14.0 45 Right Median Anti Sensory (2-3nd Digit) Wrist 3.7 18.3 Wrist 2-3nd Digit 3.7 14.0 38 Wrist 3.5 41.7 Wrist 2-3nd Digit 3.7 14.0 38 Left Radial Anti Sensory (Base 1st Digit) Wrist 1.9 32.1 Wrist Base 1st Digit 1.9 0.0 Right Radial Anti Sensory (Base 1st Digit) Wrist 2.2 23.6 Wrist Base 1st Digit 2.2 0.0 Left Ulnar Anti Sensory (5th Digit) Wrist 2.4 42.6 Wrist 5th Digit 2.4 14.0 58 Right Ulnar Anti Sensory (5th Digit) Wrist 2.2 31.2 Wrist 5th Digit 2.2 14.0 64 Motor Summary Table Stim Site NR Onset (ms) O-P Amp (mV) Site1 Site2 Delta-0 (ms) Dist (cm) Alejandro (m/s) Left Median Motor (Abd Poll Brev) Wrist 4.0 3.0 Elbow Wrist 5.1 31.0 61 Elbow 9.1 2.2 Right Median Motor (Abd Poll Brev) Wrist 4.0 6.1 Elbow Wrist 4.6 28.0 61 Elbow 8.6 5.6 Left Ulnar Motor (Abd Dig Minimi) Wrist 2.8 4.9 A Elbow Wrist 5.8 31.0 53 A Elbow 8.6 4.1 B Elbow Wrist 4.2 25.0 60 B Elbow 7.0 3.6 Right Ulnar Motor (Abd Dig Minimi) Wrist 2.4 6.1 A Elbow Wrist 5.4 31.0 57 A Elbow 7.8 6.1 F Wave Studies NR F-Lat (ms) L-R F-Lat (ms) Left Median (Mrkrs) (Abd Poll Brev) 30.14 0.29 Right Median (Mrkrs) (Abd Poll Brev) 29.84 0.29 Left Ulnar (Mrkrs) (Abd Dig Min) 31.73 0.58 Right Ulnar (Mrkrs) (Abd Dig Min) 31.14 0.58 EMG Side Muscle Nerve Root Ins Act Fibs Amp Dur Recrt Comment Right 1stDorInt Ulnar C8-T1 Nml Nml Nml Nml Nml Right Ext Indicis Radial (Post Int) C7-8 Nml Nml Nml Nml Nml Right Ext Digitorum Radial (Post Int) C7-8 Nml Nml Nml Nml Nml Right BrachioRad Radial C5-6 Nml Nml Nml Nml Nml Right PronatorTeres Median C6-7 Nml Nml Nml Nml Nml Right Abd Poll Brev Median C8-T1 Nml Nml Nml Nml Nml Left 1stDorInt Ulnar C8-T1 Nml Nml Nml Nml Nml Left Ext Indicis Radial (Post Int) C7-8 Nml Nml Nml Nml Nml Left Ext Digitorum Radial (Post Int) C7-8 Nml Nml Nml Nml Nml Left BrachioRad Radial C5-6 Nml Nml Nml Nml Nml Left PronatorTeres Median C6-7 Nml Nml Nml Nml Nml Left Abd Poll Brev Median C8-T1 Nml Nml Nml Nml Nml Right ABD Dig Min Ulnar C8-T1 Nml Nml Nml Nml Nml Left ABD Dig Min Ulnar C8-T1 Nml Nml Nml Nml Nml MTDD
== END 2023-11-05 13:03 | disposition home or self-care (01) ==
LOC: ANHNEURO 13:02
PROVIDERS: PCP Emergency Medicine; Visit Provider Plastic Surgery
DX: R20.0 Anesthesia of skin (principal); R20.2 Paresthesia of skin; R53.1 Weakness; G56.22 Lesion of ulnar nerve, left upper limb; G56.03 Carpal tunnel syndrome, bilateral upper limbs
CPT/HCPCS: 95886; 95911

== ENCOUNTER 2023-11-07 01:07 | Day surgery (SDC) | payer OTHER, SELFPAY ==
[2023-09-05 13:40] VITALS: BMI 40.2
[2023-10-14 09:31] VITALS: BMI 40.2
--- NOTE | 2023-11-05 09:25 | SUR.PREOP ---
Patient called regarding upcoming procedure. Reviewed preop instructions, appointment times, and procedure prep.
--- NOTE | 2023-11-06 15:10 | PM.HPGS ---
History of Present Illness History of Present Illness Consent: Risks, benefits, and alternatives have been discussed and questions answered. Patient agrees to proceed with procedure. Chief complaint: hx of colon polyps Narrative: Pat Wood is a 52 year old female referred for colon cancer screening. A referral from her primary care physician last December stated ?adenomatous polyp? we do not know where that polyp was removed or how long ago. Review of Systems Review of Systems: All systems reviewed & are unremarkable except as noted in HPI and below PMFSH Past Medical History Medical History Depression with anxiety DM2 (diabetes mellitus, type 2) Glaucoma History of diabetes mellitus History of hypertension Hyperlipidemia Hypertension Tobacco abuse Surgical History Surgical History H/O hernia repair X3 H/O left knee surgery H/O removal of cyst History of section, low transverse X2 History of incision and drainage 06/29/2022 - complex incision and drainage abdominal wall abscess Family History Family History Father Family history of diabetes mellitus in first degree relative Family history of congestive heart failure Mother Family history of heart disease in male family member before age 55 Acute myocardial infarction Other Diabetes mellitus Hypertension Social History Social History Social History: The patient stated that she is down to about 3 cigarettes a day. She is . She works as a medical secretary. She has 2 children. She occasionally drinks alcohol. No marijuana or illicit drugs. She does not have a durable power transactional attorney for healthcare. Code status full code Years smoked: 30 Smoking status: Current every day smoker Tobacco type: cigarettes Alcohol intake: current Alcohol use details: Socially Substance use type: does not use Living arrangements: alone Meds Home Medications and Allergies Home Medications Medication Instructions Recorded Confirmed Type brimonidine 0.2 % eye drops 1 drp EACH EYE BID 06/28/22 10/14/23 History diazepam 5 mg tablet 5 mg PO BID 06/28/22 11/07/23 History fenofibrate 160 mg tablet 160 mg PO DAILY 06/28/22 11/07/23 History glimepiride 1 mg tablet 1 mg PO DAILY 06/28/22 11/07/23 History latanoprost 0.005 % eye drops 1 drp EACH EYE HS 06/28/22 10/14/23 History lisinopril 20 mg tablet 20 mg PO DAILY 06/28/22 10/14/23 History metformin 850 mg tablet 1,000 mg PO BID 06/28/22 10/14/23 History rosuvastatin 10 mg tablet 10 mg PO DAILY 06/28/22 10/14/23 History venlafaxine 37.5 mg tablet 37.5 mg PO BID 06/28/22 10/14/23 History dulaglutide 3 mg/0.5 mL 1.75 mg subcut WEEKLY 09/05/23 10/14/23 History subcutaneous pen injector (Trulicity) irbesartan 150 mg tablet 150 mg PO DAILY 11/07/23 11/07/23 History phentermine 37.5 mg tablet 37.5 mg PO DAILY 11/07/23 11/07/23 History Allergies Allergy/AdvReac Type Severity Reaction Status Date / Time No Known Allergies Allergy Verified 11/07/23 10:26 Exam Const: General: alert Nutritional Appearance: obese Orientation/consciousness: patient oriented x3 Other: She has multiple body piercings particularly on her face Resp: Auscultation: clear to auscultation bilaterally Cardio: Rhythm: regular rhythm GI: GI Palp: Yes Soft to palpation and No Tenderness to palpation present (GI) Neuro: General: patient oriented x3 Assessment and Plan Assessment and plan (1) Personal history of colonic polyps: Code(s): Z86.010 - Personal history of colonic polyps Status: Acute Assessment and Plan: Colonoscopy with possible biopsy or polypectomy or cautery or injection of substances.
[2023-11-07 10:33] VITALS: BP 121/66; PULSE 82; RESP 20; TEMP 36.6; O2SAT 95
[2023-11-07] MEDS: LACTATED RINGERS 1,000 ML 150 ML IV CONT (10:42)
[2023-11-07 10:45] LABS: Glucose Point of Care 125 mg/dl (65-105)
--- NOTE | 2023-11-07 10:59 | WPDANESEPPF ---
Anes - Initial Pre Proc Eval Procedure: Operation Date: 11/07/23 11:30 Proposed Procedures p Colonoscopy - Vicente Valenzuela MD Date/Time: 11/07/23 10:59 Surgeon: Vicente Valenzuela MD Pre Op Diagnosis: hx of colon polyps Patient Data Age: 52 Gender: F Height: 1.78 m Weight: 129.8 kg Last Vital Signs Temp 97.9 F 11/07/23 10:33 Pulse 82 11/07/23 10:33 Resp 20 11/07/23 10:33 BP 121/66 11/07/23 10:33 Pulse Ox 95 11/07/23 10:33 O2 Del Method Room Air 11/07/23 10:33 Allergies Allergy/AdvReac Type Severity Reaction Status Date / Time No Known Allergies Allergy Verified 11/07/23 10:26 Home Medications Medication Instructions Recorded Confirmed Type brimonidine 0.2 % eye drops 1 drp EACH EYE BID 06/28/22 10/14/23 History diazepam 5 mg tablet 5 mg PO BID 06/28/22 11/07/23 History fenofibrate 160 mg tablet 160 mg PO DAILY 06/28/22 11/07/23 History glimepiride 1 mg tablet 1 mg PO DAILY 06/28/22 11/07/23 History latanoprost 0.005 % eye drops 1 drp EACH EYE HS 06/28/22 10/14/23 History lisinopril 20 mg tablet 20 mg PO DAILY 06/28/22 10/14/23 History metformin 850 mg tablet 1,000 mg PO BID 06/28/22 10/14/23 History rosuvastatin 10 mg tablet 10 mg PO DAILY 06/28/22 10/14/23 History venlafaxine 37.5 mg tablet 37.5 mg PO BID 06/28/22 10/14/23 History dulaglutide 3 mg/0.5 mL 1.75 mg subcut WEEKLY 09/05/23 10/14/23 History subcutaneous pen injector (Trulicity) irbesartan 150 mg tablet 150 mg PO DAILY 11/07/23 11/07/23 History phentermine 37.5 mg tablet 37.5 mg PO DAILY 11/07/23 11/07/23 History Laboratory Tests 11/07/23 10:40 POC Capillary Glucose 125 H mg/dl (65-105) Patient hx anesthesia problems: none Family hx anesthesia problems: none Results Review: All pre-operative results and documents have been reviewed as part of the pre-operative evaluation. [facility] Past Medical History Medical History (Updated 11/06/23 @ 15:11 by Vicente Valenzuela MD) Depression with anxiety DM2 (diabetes mellitus, type 2) Glaucoma History of diabetes mellitus History of hypertension Hyperlipidemia Hypertension Tobacco abuse Surgical History Surgical History (Updated 08/16/22 @ 11:15 by Michelle Rivera) H/O hernia repair X3 H/O left knee surgery H/O removal of cyst History of section, low transverse X2 History of incision and drainage 06/29/2022 - complex incision and drainage abdominal wall abscess Family History Family History Father Family history of diabetes mellitus in first degree relative Family history of congestive heart failure Mother Family history of heart disease in male family member before age 55 Acute myocardial infarction Other Diabetes mellitus Hypertension Social History Social History Social History: The patient stated that she is down to about 3 cigarettes a day. She is . 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 She occasionally drinks alcohol. No marijuana or illicit drugs. She does not have a durable power workers compensation defense attorney for healthcare. Code status full code Years smoked: 30 Smoking status: Current every day smoker Tobacco type: cigarettes Alcohol intake: current Alcohol use details: Socially Substance use type: does not use Living arrangements: alone Anes - Eval Final PreProcedure Day of Procedure 11/07/23 10:59 Patient weight: morbidly obese Heart: regular rate and rhythm Lungs: clear to auscultation Airway: Mallampati scale class III Neurological: alert and oriented Last oral intake: >/= 8 hours ASA classification: III Emergent: no Anesthetic plan: proceed Anesthesia type and monitoring: general GIVS and standard monitoring Results Review: All pre-operative results and documents have been reviewed as part of the pre-operative evaluation. Informed Consent
[2023-11-07 11:37] VITALS: BP 120/70; PULSE 65; RESP 16; O2SAT 100
[2023-11-07 11:47] VITALS: BP 123/71; PULSE 67; RESP 19; O2SAT 99
[2023-11-07 11:57] VITALS: BP 131/72; PULSE 73; RESP 24; O2SAT 99
== END 2023-11-07 12:00 | disposition home or self-care (01) ==
PROVIDERS: PCP Emergency Medicine; Visit Provider Internal Medicine Gastroenterology
PROC: 0DJD8ZZ Inspection of Lower Intestinal Tract, Via Natural or Artificial Opening Endoscopic (ICD-10-PCS; CPT 45378; principal; 2023-11-07 11:30)
DX: Z12.11 Encounter for screening for malignant neoplasm of colon (principal); K62.1 Rectal polyp; K57.30 Diverticulosis of large intestine without perforation or abscess without bleeding; I10 Essential (primary) hypertension; E11.9 Type 2 diabetes mellitus without complications; E78.5 Hyperlipidemia, unspecified; F41.8 Other specified anxiety disorders; H40.9 Unspecified glaucoma; F17.210 Nicotine dependence, cigarettes, uncomplicated; E66.01 Morbid (severe) obesity due to excess calories; Z68.41 Body mass index [BMI] 40.0-44.9, adult; Z79.84 Long term (current) use of oral hypoglycemic drugs; Z79.85 Long-term (current) use of injectable non-insulin antidiabetic drugs
CPT/HCPCS: 45380; 82948; 88305; J2704; J7120